=== PATIENT | female | born 1960 | race Caucasian/White ===

== ENCOUNTER 2024-02-13 19:07 | Emergency (ER) | payer OTHER ==
[~2024-02-13] VITALS: Ht 172.7 cm; Wt 68.0 kg
[2024-02-13 19:11] VITALS: BP 160/100; PULSE 84; RESP 16; TEMP 97.2; O2SAT 98
[2024-02-13] MEDS ORDERED: IBUP-2029 MT (22:19)
== END 2024-02-13 23:06 | disposition home or self-care (01) ==
LOC: ER 19:07
DX: S09.90XA Unspecified injury of head, initial encounter (principal); S33.5XXA Sprain of ligaments of lumbar spine, initial encounter; I10 Essential (primary) hypertension; W18.39XA Other fall on same level, initial encounter; Y93.89 Activity, other specified; Y92.89 Other specified places as the place of occurrence of the external cause; Y99.8 Other external cause status
CPT/HCPCS: 72100; 99284

== ENCOUNTER 2024-02-15 00:31 | Emergency (ER) | payer OTHER ==
[~2024-02-15] VITALS: Ht 162.6 cm; Wt 57.0 kg
[~2024-02-15 00:31] MED LIST: IBUP-2029 MT
[2024-02-15 00:32] VITALS: O2SAT 96
[2024-02-15] MEDS ORDERED: METH-653 MT (01:28)
[2024-02-15] MEDS: IBUPROFEN 600MG TABLET PO ONE (01:45)
[2024-02-15] MEDS: CYCLOBENZAPRINE 10MG TABLET PO ONE (01:45)
[2024-02-15 02:10] VITALS: BP 166/87; PULSE 94; RESP 16; TEMP 98.1
== END 2024-02-15 02:17 | disposition home or self-care (01) ==
LOC: ER 00:31
DX: S33.5XXA Sprain of ligaments of lumbar spine, initial encounter (principal); I10 Essential (primary) hypertension; Z59.00 Homelessness unspecified; W18.30XA Fall on same level, unspecified, initial encounter; Y93.89 Activity, other specified; Y92.89 Other specified places as the place of occurrence of the external cause; Y99.8 Other external cause status
CPT/HCPCS: 99283